=== PATIENT | female | born 1990 | race African-American/Black ===

== ENCOUNTER 2018-11-13 02:21 | Emergency (ER) | payer BC ==
[~2018-11-13] VITALS: Ht 162.6 cm; Wt 114.0 kg
[2018-11-13 07:55] VITALS: BP 146/88
== END 2018-11-13 08:00 | disposition home or self-care (01) ==
LOC: ER 02:21
DX: S93.402A Sprain of unspecified ligament of left ankle, initial encounter (principal); X58.XXXA Exposure to other specified factors, initial encounter; Y93.89 Activity, other specified; Y92.89 Other specified places as the place of occurrence of the external cause; Y99.8 Other external cause status
CPT/HCPCS: 73610; 81025; 99283; Z7610